=== PATIENT | male | born 1955 | race Caucasian/White ===

== ENCOUNTER 2019-06-05 13:24 | Emergency (ER) | payer OTHER ==
--- NOTE | 2019-06-05 15:16 | RAD REPORT ---
EXAM DESCRIPTION: RAD - Chest Single View - 06/05/2019 2:35 pm CLINICAL HISTORY: CHEST PAIN Chest pain. COMPARISON: CHEST SINGLE VIEW dated 09/19/2009 FINDINGS: Portable technique limits examination quality. Calcified granuloma is present in the right upper lobe. The lungs are otherwise mildly emphysematous but clear. The heart is normal in size. No displaced fractures. IMPRESSION: No acute intrathoracic process suspected.
[2019-06-05 15:20] LABS: Absolute Lymphocytes (CBC) 1.8 K/uL (0.7-4.9); Basophils % 0.6 % (0-1.3); Hematocrit 38.1 % (39.6-49.0); Lymphocytes % 28.9 % (15.3-44.8); MPV 8.5 fL (7.6-11.3); RBC Red Blood Cell Count 4.01 M/uL (4.33-5.43)
[2019-06-05 15:28] LABS: Protime INR 0.96
[2019-06-05 15:33] LABS: Albumin 4.2 g/dL (3.4-5.0); Bilirubin Direct 0.1 mg/dL (0-0.2); Bilirubin Total 0.4 mg/dL (0.2-1.0); Magnesium 2.1 mg/dL (1.8-2.4); Potassium 4.1 mmol/L (3.5-5.1); Protein, Total 7.2 g/dL (6.4-8.2)
--- NOTE | 2019-06-05 16:18 | EDPHYS ---
Physician Documentation [facility] Name: Edis Lopez Age: 64 yrs Sex: Male : 1955 Arrival Date: 06/05/2019 Time: 13:27 Bed 14 Private MD: ED Physician Erick Cervantes HPI: 06/05 15:32 This 64 yrs old Male presents to ER via Wheelchair with complaints of Chest jr8 Pain, Shortness Of Breath. 15:32 The patient or guardian reports chest pain that is located primarily in the substernal jr8 area. Onset: gradually, 1 month(s) ago, and became worse and became persistent. The pain does not radiate. Associated signs and symptoms: Pertinent positives: shortness of breath. The chest pain is described as dull, a pressure. Duration: The patient or guardian reports multiple episodes, that are intermittent, that wax and wane, with no pattern. Modifying factors: The symptoms are alleviated by nothing. the symptoms are aggravated by nothing. Severity of pain: At its worst the pain was moderate in the emergency department the pain is unchanged. The patient has not experienced similar symptoms in the past. The patient has not recently seen a physician. Historical: - Allergies: 13:46 No Known Allergies; iw - PMHx: 13:46 COPD; Emphysema; iw - PSHx: 13:46 None; iw - Immunization history:: Adult Immunizations up to date. - Social history:: Smoking status: Patient/guardian denies using tobacco. - Ebola Screening: : Patient negative for fever greater than or equal to 101.5 degrees Fahrenheit, and additional compatible Ebola Virus Disease symptoms Patient denies exposure to infectious person Patient denies travel to an Ebola-affected area in the 21 days before illness onset No symptoms or risks identified at this time. ROS: 15:32 Eyes: Negative for injury, pain, redness, and discharge, ENT: Negative for injury, jr8 pain, and discharge, Neck: Negative for injury, pain, and swelling, Abdomen/GI: Negative for abdominal pain, nausea, vomiting, diarrhea, and constipation, Back: Negative for injury and pain, MS/Extremity: Negative for injury and deformity, Skin: Negative for injury, rash, and discoloration, Neuro: Negative for headache, weakness, numbness, tingling, and seizure. 15:32 Cardiovascular: Positive for chest pain, Negative for edema, orthopnea, palpitations, paroxysmal nocturnal dyspnea. 15:32 Respiratory: Positive for shortness of breath, Negative for cough, dyspnea on exertion, sputum production, wheezing. Exam: 16:16 Eyes: Pupils equal round and reactive to light, extra-ocular motions intact. Lids and jr8 lashes normal. Conjunctiva and sclera are non-icteric and not injected. Cornea within normal limits. Periorbital areas with no swelling, redness, or edema. ENT: Nares patent. No nasal discharge, no septal abnormalities noted. Tympanic membranes are normal and external auditory canals are clear. Oropharynx with no redness, swelling, or masses, exudates, or evidence of obstruction, uvula midline. Mucous membranes moist. Neck: Trachea midline, no thyromegaly or masses palpated, and no cervical lymphadenopathy. Supple, full range of motion without nuchal rigidity, or vertebral point tenderness. No Meningismus. Cardiovascular: Regular rate and rhythm with a normal S1 and S2. No gallops, murmurs, or rubs. Normal PMI, no JVD. No pulse deficits. Respiratory: Lungs have equal breath sounds bilaterally, clear to auscultation and percussion. No rales, rhonchi or wheezes noted. No increased work of breathing, no retractions or nasal flaring. Abdomen/GI: Soft, non-tender, with normal bowel sounds. No distension or tympany. No guarding or rebound. No evidence of tenderness throughout. Back: No spinal tenderness. No costovertebral tenderness. Full range of motion. Skin: Warm, dry with normal turgor. Normal color with no rashes, no lesions, and no evidence of cellulitis. MS/ Extremity: Pulses equal, no cyanosis. Neurovascular intact. Full, normal range of motion. Neuro: Awake and alert, GCS 15, oriented to person, place, time, and situation. Cranial nerves II-XII grossly intact. Motor strength 5/5 in all extremities. Sensory grossly intact. Cerebellar exam normal. Normal gait. Vital Signs: 13:35 BP 160 / 82; Pulse 67; Resp 18 S; Temp 97.8(TE); Pulse Ox 100% on R/A; Weight 58.97 kg; iw Height 5 ft. 8 in. (172.72 cm); Pain 3/10; 14:30 BP 143 / 86; Pulse 67; Resp 16; Pulse Ox 100% on R/A; Pain 3/10; rb1 15:30 BP 132 / 81; Pulse 67; Resp 15; Pulse Ox 100% ; rb1 16:15 BP 143 / 77; Pulse 61; Resp 18; Pulse Ox 100% on R/A; Pain 2/10; rb1 13:35 Body Mass Index 19.77 (58.97 kg, 172.72 cm) iw MDM: 14:22 Patient medically screened. jr8 16:16 Data reviewed: vital signs, nurses notes, lab test result(s), EKG, radiologic studies, jr8 plain films. Data interpreted: Pulse oximetry: on room air is 100 %. Interpretation: normal. Counseling: I had a detailed discussion with the patient and/or guardian regarding: the historical points, exam findings, and any diagnostic results supporting the discharge/admit diagnosis, lab results, radiology results, the need for outpatient follow up, a family practitioner, to return to the emergency department if symptoms worsen or persist or if there are any questions or concerns that arise at home. 06/05 14:22 Order name: Basic Metabolic Panel; Complete Time: 15:51 06/05 14:22 Order name: CBC with Diff; Complete Time: 15:29 06/05 14:22 Order name: LFT's; Complete Time: 15:06/05 14:22 Order name: Magnesium; Complete Time: 15:51 06/05 14:22 Order name: NT PRO-BNP; Complete Time: 15:51 06/05 14:22 Order name: PT-INR; Complete Time: 15:51 06/05 14:22 Order name: Troponin (emerg Dept Use Only); Complete Time: 15:51 06/05 14:22 Order name: XRAY Chest (1 view); Complete Time: 15:51 06/05 14:22 Order name: EKG; Complete Time: 14:24 06/05 14:22 Order name: Cardiac monitoring; Complete Time: 15:34 06/05 14:22 Order name: EKG - Nurse/Tech; Complete Time: 15:34 06/05 14:22 Order name: IV Saline Lock; Complete Time: 15:34 06/05 14:22 Order name: Labs collected and sent; Complete Time: 15:34 8 06/05 14:22 Order name: O2 Per Protocol; Complete Time: 15:34 8 06/05 14:22 Order name: O2 Sat Monitoring; Complete Time: 15:34 8 Administered Medications: No medications were administered Disposition: 06/05/19 16:17 Discharged to Home. Impression: Chest pain, unspecified. - Condition is Stable. - Discharge Instructions: Nonspecific Chest Pain. - Prescriptions for Hydroxyzine HCl 50 mg Oral Tablet - take 1 tablet by ORAL route every 8 hours As needed; 20 tablet. - Medication Reconciliation Form, Thank You Letter, Antibiotic Education, Prescription Opioid Use form. - Follow up: Private Physician; When: 2 - 3 days; Reason: Recheck today's complaints, Continuance of care, Re-evaluation by your physician. - Problem is new. - Symptoms have improved. Addendum: 06/10/2019 14:39 Co-signature as Attending Physician, Erick Cervantes MD. g s Signatures: Dispatcher [employer] EDMS Amalia Whipple RN RN Jose Beckett PA PA jr8 Erma Aguirre RN RN rb1 Erick Cervantes MD MD Corrections: (The following items were deleted from the chart) 06/05 16:36 16:17 06/05/2019 16:17 Discharged to Home. Impression: Chest pain, unspecified. rb1 Condition is Stable. Forms are Medication Reconciliation Form, Thank You Letter, Antibiotic Education, Prescription Opioid Use. Follow up: Private Physician; When: 2 - 3 days; Reason: Recheck today's complaints, Continuance of care, Re-evaluation by your physician. Problem is new. Symptoms have improved. jr8
--- NOTE | 2019-06-05 16:18 | ER ---
Nurse's Notes [facility] Name: Edis Lopez Age: 64 yrs Sex: Male : 1955 Arrival Date: 06/05/2019 Time: 13:27 Bed 14 Private MD: Diagnosis: Chest pain, unspecified Presentation: 06/05 13:30 Presenting complaint: Patient states: midsternal chest pain and SOB X 1 month, pain iw feels like pressure and sometimes chest wall is tender to palpation, also feels like he can't breath, hx of emphysema and COPd, also has non productive cough. Transition of care: patient was not received from another setting of care. Onset of symptoms was May 04, 2019. Risk Assessment: Do you want to hurt yourself or someone else? Patient reports no desire to harm self or others. Initial Sepsis Screen: Does the patient meet any 2 criteria? No. Patient's initial sepsis screen is negative. Does the patient have a suspected source of infection? No. Patient's initial sepsis screen is negative. Care prior to arrival: None. 13:30 Method Of Arrival: Wheelchair iw 13:30 Acuity: GREGG 3 iw Historical: - Allergies: 13:46 No Known Allergies; iw - PMHx: 13:46 COPD; Emphysema; iw - PSHx: 13:46 None; iw - Immunization history:: Adult Immunizations up to date. - Social history:: Smoking status: Patient/guardian denies using tobacco. - Ebola Screening: : Patient negative for fever greater than or equal to 101.5 degrees Fahrenheit, and additional compatible Ebola Virus Disease symptoms Patient denies exposure to infectious person Patient denies travel to an Ebola-affected area in the 21 days before illness onset No symptoms or risks identified at this time. Screenin:40 Abuse screen: Denies threats or abuse. Nutritional screening: No deficits noted. rb1 Tuberculosis screening: No symptoms or risk factors identified. Fall Risk None identified. Assessment: 13:40 General: Appears in no apparent distress. comfortable, slender, Behavior is calm, rb1 cooperative, Denies fever. Pain: Complains of pain in mid-sternal area Pain radiates to back and the back of neck Pain currently is 4 out of 10 on a pain scale. Pain began x 3 weeks. Neuro: Level of Consciousness is awake, alert, obeys commands, Oriented to person, place, time, situation. Cardiovascular: Capillary refill < 3 seconds is brisk in bilateral fingers. Respiratory: Airway is patent Respiratory effort is even, unlabored, Respiratory pattern is regular, symmetrical. Respiratory: Reports cough that is non-productive. GI: No signs and/or symptoms were reported involving the gastrointestinal system. : No signs and/or symptoms were reported regarding the genitourinary system. Derm: Skin is pink, warm \T\ dry. 14:36 Reassessment: Patient appears in no apparent distress at this time. Patient and/or rb1 family updated on plan of care and expected duration. Pain level reassessed. Patient is alert, oriented x 3, equal unlabored respirations, skin warm/dry/pink. 15:35 Reassessment: Patient appears in no apparent distress at this time. No changes from rb1 previously documented assessment. 16:15 Reassessment: Patient appears in no apparent distress at this time. Patient and/or rb1 family updated on plan of care and expected duration. Pain level reassessed. Patient is alert, oriented x 3, equal unlabored respirations, skin warm/dry/pink. Vital Signs: 13:35 BP 160 / 82; Pulse 67; Resp 18 S; Temp 97.8(TE); Pulse Ox 100% on R/A; Weight 58.97 kg; iw Height 5 ft. 8 in. (172.72 cm); Pain 3/10; 14:30 BP 143 / 86; Pulse 67; Resp 16; Pulse Ox 100% on R/A; Pain 3/10; rb1 15:30 BP 132 / 81; Pulse 67; Resp 15; Pulse Ox 100% ; rb1 16:15 BP 143 / 77; Pulse 61; Resp 18; Pulse Ox 100% on R/A; Pain 2/10; rb1 13:35 Body Mass Index 19.77 (58.97 kg, 172.72 cm) iw ED Course: 13:27 Patient arrived in ED. as 13:40 Jose Beckett PA is PHCP. jr8 13:40 Erick Cervantes MD is Attending Physician. jr8 13:40 Patient has correct armband on for positive identification. Placed in gown. Bed in low rb1 position. Call light in reach. Side rails up X 1. hall monitor on. Pulse ox on. NIBP on. Warm blanket given. 13:46 Triage completed. iw 13:47 Arm band placed on. iw 13:54 Erma Aguirre, RN is Primary Nurse. rb1 14:41 XRAY Chest (1 view) In Process Unspecified. EDMS 15:00 Inserted saline lock: 22 gauge in right antecubital area, using aseptic technique. rb1 Blood collected. Patient maintains SpO2 saturation greater than 95% on room air. 16:35 No provider procedures requiring assistance completed. IV discontinued, intact, rb1 bleeding controlled, No redness/swelling at site. Pressure dressing applied. Administered Medications: No medications were administered Outcome: 16:17 Discharge ordered by . jrRio 16:35 Discharged to home ambulatory, with significant other. rb1 16:35 Condition: stable 16:35 Discharge instructions given to patient, Instructed on discharge instructions, follow up and referral plans. medication usage, Demonstrated understanding of instructions, follow-up care, medications, Prescriptions given X 1. 16:36 Patient left the ED. rb1 Signatures: Dispatcher [employer] EDTN Viviana Ramsey as Amalia Whipple, RN RN Jose Beckett PA PA jr8 Erma Aguirre, RN RN rb1 Corrections: (The following items were deleted from the chart) 13:47 13:30 Presenting complaint: Patient states: midsternal chest pain and SOB X 1 month, iw pain feels like pressure and sometimes chest wall is tender to palpation, also feels like he can't breath, hx of emphysema and COPd iw
[2019-06-05 16:55] VITALS: TEMP 97.8; O2SAT 100
[2019-06-05 16:59] VITALS: BP 143/77
--- NOTE | 2019-06-06 08:39 | EKG ---
Test Date: 2019-06-05 Test Time: 13:35:10 Public Policy Mediator: ENIDT MEASUREMENT RESULTS: Intervals: Rate: 57 CA: 138 QRSD: 78 QT: 410 QTc: 399 [place]: P: 69 CA: 138 QRS: 51 T: 64 INTERPRETIVE STATEMENTS: Sinus bradycardia Otherwise normal ECG Compared to ECG 09/19/2009 20:51:23 No significant changes Electronically Signed On 06-06-19 08:39:01 CDT by Jozef Black
== END 2019-06-05 16:36 | disposition home or self-care (01) ==
LOC: ER 13:24
DX: R07.9 Chest pain, unspecified (principal)
CPT/HCPCS: 36415; 71045; 80048; 80076; 83735; 83880; 84484; 85025; 85610; 93005; 99285

== ENCOUNTER 2024-06-12 10:05 | Emergency (ER) | payer MEDICARE ==
[2024-06-12] MEDS ORDERED: TDAP (DIPHTH,PERTUSS(ACELL),TET VAC) 0.5 ML VIAL IMVAC ONE (11:00)
--- NOTE | 2024-06-12 11:55 | RAD REPORT ---
Exam:Hand Left 3 View CLINICAL HISTORY: Left hand pain FINDINGS: No fracture or dislocation seen
[2024-06-12] MEDS ORDERED: LIDOCAINE 2% W/EPI 1:200,000 MPF 20 ML VIAL IM ONE (12:15)
--- NOTE | 2024-06-12 13:02 | EDPHYS ---
Physician Documentation [facility] Name: Edis Lopez Age: 69 yrs Sex: Male : 1955 Arrival Date: 06/12/2024 Time: 10:05 Bed 11 Private MD: ED Physician Jacky Simmons HPI: 06/12 11:02 This 69 yrs old Male presents to ER via Ambulatory with complaints of Laceration - ms3 Finger. 11:02 69-year-old male with past medical history of COPD, emphysema, hypertension [place] [facility] [place] department for laceration of proximal left second digit. Patient states his discomfort is mild. He denies any alleviating or inciting factors. Patient denies numbness of the digit.. Historical: - Allergies: 10:24 No Known Allergies; ss - PMHx: 10:24 COPD; Emphysema; hypertension (Emphysema); ss - Immunization history:: Last tetanus immunization: unknown. - Infectious Disease History:: Denies. - Social history:: Smoking status: Patient denies any tobacco usage or history of. ROS: 11:02 Constitutional: Negative for fever, and chills. Neck: Negative for injury, pain, and ms3 swelling, Cardiovascular: Negative for chest pain, and palpitations. Respiratory: Negative for shortness of breath, cough, wheezing, and pleuritic chest pain, Abdomen/GI: Negative for abdominal pain, nausea, vomiting, diarrhea, and constipation, 11:02 Skin: Positive for laceration(s), Exam: 11:02 Constitutional: This is a well developed, well nourished patient who is awake, alert, ms3 and in no acute distress. Head/Face: Normocephalic, atraumatic. Cardiovascular: Regular rate and rhythm with a normal S1 and S2. No gallops, murmurs, or rubs. Normal PMI, no JVD. No pulse deficits. Respiratory: Lungs have equal breath sounds bilaterally, clear to auscultation and percussion. No rales, rhonchi or wheezes noted. No increased work of breathing, no retractions or nasal flaring. Abdomen/GI: Soft, non-tender, with normal bowel sounds. No distension or tympany. No guarding or rebound. No evidence of tenderness throughout. MS/ Extremity: Pulses equal, no cyanosis. Neurovascular intact. Full, normal range of motion. 11:02 Skin: injury, laceration(s), the wound is approximately 3 cm(s), Vital Signs: 10:24 Pulse 103; Resp 17; Temp 98.6(O); Pulse Ox 99% ; Weight 68.04 kg; Height 5 ft. 8 in. ; ss Pain 2/10; 10:28 BP 118 / 86; ss 13:07 BP 133 / 96; Pulse 87; Resp 18; Temp 98.6; Pulse Ox 98% on R/A; MAP 109 mmHg; Pain 2/10;tm6 10:24 Body Mass Index 22.81 (68.04 kg, 172.72 cm) ss 10:24 Pain Scale: Adult ss 13:07 Pain Scale: Adult tm6 Laceration: 13:02 Wound Repair of 2.5cm ( 1.0in ) subcutaneous laceration to left hand. Distal ms3 neuro/vascular/tendon intact. Anesthesia: Local anesthetic administered with 3 mls of 2% Lidocaine with epi. Wound prep: Simple cleansing by me. Skin closed with 3 5-0 Prolene using simple sutures and sterile technique. Dressed with Bacitracin, non-adherent dressing. Patient tolerated well. MDM: 10:28 Patient medically screened. ms3 11:06 Differential diagnosis: open fracture, Tendon laceration vs laceration. ms3 13:42 Data reviewed: vital signs, nurses notes, radiologic studies, and as a result, I will ms3 discharge patient. Consideration of Admission/Observation Discussed transfer to hand surgery as patient with weak extension of finger. Patient declines. Patient states he would like laceration sutured. Discussed with patient he may have loss of function of second digit due to extensor tendon laceration. Patient understands and accepts risks.. I considered the following discharge prescriptions or medication management in the emergency department Medications were administered in the Emergency Department. See MAR. Independent interpretation of the following test(s) in the Emergency Department X-Ray: My interpretation is Left hand x-ray images reviewed by me do not reveal radiopaque foreign body. Care significantly affected by the following chronic conditions: Hypertension, Chronic Obstructive Pulmonary Disease. Counseling: I had a detailed discussion with the patient and/or guardian regarding the historical points, exam findings, and any diagnostic results supporting the discharge/admit diagnosis, the need for outpatient follow up, to return to the emergency department if symptoms worsen or persist or if there are any questions or concerns that arise at home. Refusal of service: The patient/guardian displays adequate decision making capability and despite a detailed discussion of alternatives, benefits, risks, and consequences refuses: Transfer to hand surgery. ED course: Patient's laceration sutured without complications. Patient to follow-up with Dr. Gerard Hooper in 2 to 3 days. Patient understands and agrees with plan. All questions were answered. Return precautions discussed include worsening symptoms, or any other concerns.. 06/12 10:45 Order name: Hand Left 3 View XRAY; Complete Time: 12:04 ms3 Administered Medications: 11:05 Drug: Boostrix Tdap IM 0.5 ml IM once; as a single dose Route: IM; Site: right deltoid; ss 11:06 Follow up: 06/18/26 [id number] 13:34 Drug: Bacitracin Topical Ointment (500 unit/g) 1 application Topical once Route: tm6 Topical; Site: affected area; 13:35 Follow up: Response: Medication administered at discharge. tm6 Disposition Summary: 06/12/24 13:01 Discharge Ordered Notes: Location: Home ms3 Condition: Stable ms3 Diagnosis - Laceration without foreign body of left index finger without damage to nail ms3 Followup: ms3 - With: Chip Chen DO - When: 2 - 3 days - Reason: Recheck today's complaints Discharge Instructions: - Discharge Summary Sheet ms3 - Laceration Care, Adult, [id number] ms3 Forms: - Medication Reconciliation Form ms3 - Antibiotic Education ms3 - Prescription Opioid Use ms3 - Patient Portal Instructions ms3 - Leadership Thank You Letter ms3 Prescriptions: - Cephalexin 250 mg Oral capsule - take 1 capsule ORAL route every 6 hours for 5 days; 20 capsule; Refills: 0, ms3 Product Selection Permitted Signatures: Dispatcher [employer] Elisa Mcgill RN RN ss Jacky Simmons DO DO ms3 Chon Hadley RN RN tm6
--- NOTE | 2024-06-12 13:02 | ER ---
Nurse's Notes [facility] Name: Edis Lopez Age: 69 yrs Sex: Male : 1955 Arrival Date: 06/12/2024 Time: 10:05 Bed 11 Private MD: Diagnosis: Laceration without foreign body of left index finger without damage to nail Presentation: 06/12 10:23 Chief complaint: Patient states: Laceration noted to L fourth knuckle that occurred 1 ss hour ago after a disc on a thread grinder, "blew up.". Coronavirus screen: Client denies travel out of the [place] in the last 14 days. Ebola Screen: Patient denies exposure to infectious person. Patient denies travel to an Ebola-affected area in the 21 days before illness onset. Complicating Factors: There are no complicating factors for this patient. Initial Sepsis Screen: Does the patient meet any 2 criteria? No. Patient's initial sepsis screen is negative. Does the patient have a suspected source of infection? No. Patient's initial sepsis screen is negative. Risk Assessment: Do you want to hurt yourself or someone else? Patient reports no desire to harm self or others. Onset of symptoms was June 12, 2024. 10:23 Method Of Arrival: Ambulatory ss 10:23 Acuity: GREGG 4 ss Historical: - Allergies: 10:24 No Known Allergies; ss - PMHx: 10:24 COPD; Emphysema; hypertension (Emphysema); ss - Immunization history:: Last tetanus immunization: unknown. - Infectious Disease History:: Denies. - Social history:: Smoking status: Patient denies any tobacco usage or history of. Screenin:49 [facility] ED Fall Risk Assessment (Adult) History of falling in the last 3 months, tm6 including since admission No falls in past 3 months (0 pts) Confusion or Disorientation No (0 pts) Intoxicated or Sedated No (0 pts) Impaired Gait No (0 pts) Mobility Assist Device Used No (0 pt) Altered Elimination No (0 pt) Score/Fall Risk Level 0 - 2 = Low Risk Oriented to surroundings, Maintained a safe environment, Educated pt \\T\\ family on fall prevention, incl call for assistance when getting out of bed. Abuse screen: Denies threats or abuse. Denies injuries from another. Nutritional screening: No deficits noted. Tuberculosis screening: No symptoms or risk factors identified. Assessment: 12:00 General: Appears in no apparent distress. Behavior is calm, cooperative. tm6 12:48 Pain: Complains of pain in left hand Pain currently is 2 out of 10 on a pain scale. tm6 Neuro: Level of Consciousness is awake, alert, obeys commands, Oriented to person, place, time, situation. Cardiovascular: Patient's skin is warm and dry. Respiratory: Airway is patent Respiratory effort is even, unlabored, Respiratory pattern is regular, symmetrical. GI: No signs and/or symptoms were reported involving the gastrointestinal system. Abdomen is flat, non-distended. : No signs and/or symptoms were reported regarding the genitourinary system. EENT: No signs and/or symptoms were reported regarding the EENT system. Derm: laceration to left hand. Musculoskeletal: laceration to left hand. Injury Description: Laceration sustained to left hand is 0.5 to 2.5 cm long, not bleeding. Vital Signs: 10:24 Pulse 103; Resp 17; Temp 98.6(O); Pulse Ox 99% ; Weight 68.04 kg; Height 5 ft. 8 in. ; ss Pain 2/10; 10:28 BP 118 / 86; ss 13:07 BP 133 / 96; Pulse 87; Resp 18; Temp 98.6; Pulse Ox 98% on R/A; MAP 109 mmHg; Pain 2/10;tm6 10:24 Body Mass Index 22.81 (68.04 kg, 172.72 cm) ss 10:24 Pain Scale: Adult ss 13:07 Pain Scale: Adult tm6 ED Course: 10:10 Patient arrived in ED. mg5 10:13 Jacky Simmons DO is Attending Physician. ms3 10:24 Triage completed. ss 10:24 Arm band placed on right wrist. ss 10:47 Elisa Martinez, RN is Primary Nurse. ss 10:57 Hand Left 3 View XRAY In Process Unspecified. EDMS 12:49 Patient has correct armband on for positive identification. Bed in low position. Call tm6 light in reach. Side rails up X 1. Provided Education on: use of call davis. 13:01 Chip Chen DO is Referral Physician. ms3 13:01 Assist provider with laceration repair on left hand using sutures. Set up tray. tm6 Performed by Jacky Simmons DO Patient tolerated well. 13:07 Patient did not have IV access during this emergency room visit. tm6 13:35 Dressings: non-adherent dressing x 1 left hand. tm6 Administered Medications: 11:05 Drug: Boostrix Tdap IM 0.5 ml IM once; as a single dose Route: IM; Site: right deltoid; ss 11:06 Follow up: 06/18/26 [id number] 13:34 Drug: Bacitracin Topical Ointment (500 unit/g) 1 application Topical once Route: tm6 Topical; Site: affected area; 13:35 Follow up: Response: Medication administered at discharge. tm6 Medication: 11:06 Vaccine Information Statement (VIS) provided today. Questions and/or concerns ss addressed. VIS edition date: April 2021. Intake: Outcome: 13:01 Discharge ordered by . ms3 13:07 Condition: stable tm6 13:35 Discharged to home ambulatory, with family, tm6 13:35 Discharge instructions given to patient, family, Instructed on discharge instructions, follow up and referral plans. medication usage, Demonstrated understanding of instructions, follow-up care, medications, Prescriptions given X 1, 13:35 Patient left the ED. tm6 Signatures: Dispatcher [employer] EDMS Elisa Martinez, RN RN Jacky Brunson DO DO ms3 Dolores Sotelo mg5 Chon Hadley RN RN tm6
[2024-06-13 01:48] VITALS: TEMP 98.6
[2024-06-13 01:51] VITALS: BP 133/96; O2SAT 98
== END 2024-06-12 13:35 | disposition home or self-care (01) ==
LOC: ER 10:05
DX: S61.211A Laceration without foreign body of left index finger without damage to nail, initial encounter (principal)
CPT/HCPCS: 12001; 96372; 99284

== ENCOUNTER 2024-07-02 13:22 | Emergency (ER) | payer MEDICARE ==
--- NOTE | 2024-07-02 14:31 | RAD REPORT ---
Procedure: Chest Single View HISTORY: Shortness of breath COMPARISON: April 2024 FINDINGS: The lungs appear clear of acute infiltrate. No significant pleural effusion noted. The heart is normal size. IMPRESSION: No acute abnormality is displayed.
--- NOTE | 2024-07-02 14:34 | RAD REPORT ---
EXAM: CT brain without contrast HISTORY: Dizziness. Change in taste and smell COMPARISON: None TECHNIQUE: Multiple contiguous axial images were obtained and a CT of the brain without contrast.. Sagittal and coronal reconstruction performed. Automated exposure control, adjustment of the mA and/or kV according to patient size, and/or iterative reconstruction. Unless otherwise specified, incidental f indings do not require dedicated imaging follow-u FINDINGS: An intracranial bleed is not seen Ventricles are normal caliber No extra-axial fluid collection noted No significant hypodensity within the brain No fluid within the visualized sinuses or mastoids noted. IMPRESSION: No acute intracranial abnormality noted. If the patient's symptoms persist MRI of the brain would be recommended.
[2024-07-02 15:35] LABS: SARS-CoV-2 Antigen CONTROL BLUE LINE VIS/BG OK; SARS-CoV-2 Antigen Rapid Res Negative (Negative)
--- NOTE | 2024-07-02 15:55 | ER ---
Nurse's Notes [facility] Name: Edis Lopez Age: 69 yrs Sex: Male : 1955 Arrival Date: 07/02/2024 Time: 13:22 Bed 8 Private MD: Diagnosis: Anosmia;Ageusia Presentation: 07/02 13:41 Chief complaint: Patient states: Since Sunday pt has been able to sleep and his taste cm10 and smell have been off. Pt states that everything tastes and smells like chemicals. Coronavirus screen: Client denies travel out of the [place] in the last 14 days. Ebola Screen: Patient denies travel to an Ebola-affected area in the 21 days before illness onset. No symptoms or risks identified at this time. Initial Sepsis Screen: Does the patient meet any 2 criteria? HR > 90 bpm. Does the patient have a suspected source of infection? No. Patient's initial sepsis screen is negative. Risk Assessment: Do you want to hurt yourself or someone else? Patient reports no desire to harm self or others. Onset of symptoms was June 30, 2024. 13:41 Method Of Arrival: Ambulatory cm10 13:41 Acuity: GREGG 3 cm10 Triage Assessment: 13:44 General: Appears in no apparent distress. comfortable, Behavior is calm, cooperative. cm10 EENT: Reports Everything smells and tastes like chemicals.. Neuro: No deficits noted. Level of Consciousness is awake, alert, obeys commands, Oriented to person, place, time, situation, Appropriate for age. Respiratory: No deficits noted. Airway is patent Respiratory effort is even, unlabored, Respiratory pattern is regular, symmetrical. Historical: - Allergies: 13:41 No Known Allergies; cm10 - PMHx: 13:41 COPD; Emphysema; Hypertension (Emphysema); cm10 - Immunization history:: Adult Immunizations up to date. - Infectious Disease History:: Denies. - Social history:: Smoking status: unknown. - Family history:: not pertinent. - Hospitalizations: : No recent hospitalization is reported. Screenin:19 [facility] ED Fall Risk Assessment (Adult) History of falling in the last 3 months, hb including since admission No falls in past 3 months (0 pts) Confusion or Disorientation No (0 pts) Intoxicated or Sedated No (0 pts) Impaired Gait No (0 pts) Mobility Assist Device Used No (0 pt) Altered Elimination No (0 pt) Score/Fall Risk Level 0 - 2 = Low Risk Oriented to surroundings, Maintained a safe environment, Educated pt \T\ family on fall prevention, incl call for assistance when getting out of bed. Abuse screen: Denies threats or abuse. Denies injuries from another. Nutritional screening: No deficits noted. Tuberculosis screening: No symptoms or risk factors identified. Assessment: 15:19 General: Appears in no apparent distress. Behavior is calm, cooperative. Pain: Denies hb pain. Neuro: Level of Consciousness is awake, alert, obeys commands, Oriented to person, place, time, situation. Cardiovascular: Patient's skin is warm and dry. Respiratory: Respiratory effort is even, unlabored, Respiratory pattern is regular, symmetrical. GI: No signs and/or symptoms were reported involving the gastrointestinal system. : No signs and/or symptoms were reported regarding the genitourinary system. EENT: No signs and/or symptoms were reported regarding the EENT system. Derm: Skin is pink, warm \T\ dry. Musculoskeletal: No signs and/or symptoms reported regarding the musculoskeletal system. Vital Signs: 13:41 BP 131 / 105; Pulse 116; Resp 18; Temp 96.7(IR); Pulse Ox 100% on R/A; Weight 68.04 kg; cm10 Height 5 ft. 8 in. ; Pain 0/10; 13:41 Body Mass Index 22.81 (68.04 kg, 172.72 cm) cm10 13:41 Pain Scale: Adult cm10 ED Course: 13:24 Patient arrived in ED. mr 13:36 Siddharth Mcgowan MD is Attending Physician. rn 13:44 Triage completed. cm10 13:45 Arm band placed on left wrist. Patient placed in waiting room. cm10 14:13 CT Head Brain wo Cont In Process Unspecified. EDMS 14:18 XRAY Chest (1 view) In Process Unspecified. EDMS 15:13 Genaro Finley, RN is Primary Nurse. bp 15:19 Patient has correct armband on for positive identification. Provided Education on: use hb of call light . 15:19 No provider procedures requiring assistance completed. Patient did not have IV access hb during this emergency room visit. Administered Medications: No medications were administered Medication: 15:19 VIS not applicable for this client. hb Outcome: 15:54 Discharge ordered by . rn 16:01 Discharged to home ambulatory, bp 16:01 Condition: stable 16:01 Discharge instructions given to patient, Instructed on discharge instructions, follow up and referral plans. Demonstrated understanding of instructions, follow-up care, 16:01 Patient left the ED. bp Signatures: Dispatcher [employer] EDMS Patti Benito, Reg Reg mr Siddharth Mcgowan MD MD rn Baxter, Heather RN RN Genaro Tellez RN RN Anny Knapp RN RN cm10
--- NOTE | 2024-07-02 15:55 | EDPHYS ---
Physician Documentation [facility] Name: Edis Lopez Age: 69 yrs Sex: Male : 1955 Arrival Date: 07/02/2024 Time: 13:22 Bed 8 Private MD: ED Physician Siddharth Mcgowan HPI: 07/02 15:49 This 69 yrs old Male presents to ER via Ambulatory with complaints of Doesn't Feel rn Right. 15:49 Patient reports 3 days of not being able to taste or smell anything. Denies fever planning director signs of infection. No head injury. No headache. No focal neurological deficit. No vision changes. Did stop all of his medication 3 days ago around the time this started for unclear reason. Patient states took home COVID test today that was negative. This is never happened to him before. States hunger is there just does not like the taste of food at this time.. Onset: The symptoms/episode began/occurred 3 day(s) ago. Severity of symptoms: At their worst the symptoms were mild in the emergency department the symptoms are unchanged. The patient has not experienced similar symptoms in the past. The patient has not recently seen a physician. Historical: - Allergies: 13:41 No Known Allergies; cm10 - PMHx: 13:41 COPD; Emphysema; Hypertension (Emphysema); cm10 - Immunization history:: Adult Immunizations up to date. - Infectious Disease History:: Denies. - Social history:: Smoking status: unknown. - Family history:: not pertinent. - Hospitalizations: : No recent hospitalization is reported. ROS: 15:49 Constitutional: Negative for fever, chills, and weight loss, ENT: Negative for injury, rn pain, and discharge, Neck: Negative for injury, pain, and swelling, Cardiovascular: Negative for chest pain, palpitations, and edema, Respiratory: Negative for shortness of breath, cough, wheezing, and pleuritic chest pain, Abdomen/GI: Negative for abdominal pain, nausea, vomiting, diarrhea, and constipation, MS/Extremity: Negative for injury and deformity, Skin: Negative for injury, rash, and discoloration, Neuro: Negative for headache, weakness, numbness, tingling, and seizure, Exam: 15:49 Constitutional: This is a well developed, well nourished patient who is awake, alert, rn and in no acute distress. Head/Face: Normocephalic, atraumatic. ENT: No stridor, no pharyngeal abnormalities. No abnormalities of nose or nares Cardiovascular: Tachycardic, regular. No pulse deficits. Respiratory: No increased work of breathing, no retractions or nasal flaring. Neuro: Awake and alert, GCS 15, oriented to person, place, time, and situation. Cranial nerves II-XII grossly intact. Motor strength 5/5 in all extremities. Sensory grossly intact. Cerebellar exam normal. Normal gait. Vital Signs: 13:41 BP 131 / 105; Pulse 116; Resp 18; Temp 96.7(IR); Pulse Ox 100% on R/A; Weight 68.04 kg; cm10 Height 5 ft. 8 in. ; Pain 0/10; 13:41 Body Mass Index 22.81 (68.04 kg, 172.72 cm) cm10 13:41 Pain Scale: Adult cm10 MDM: 13:37 Medical Screening Exam initiated rn 15:49 Differential Diagnosis Brain tumor mass, sinusitis, COVID, other viral infection. Data rn reviewed: vital signs, nurses notes, lab test result(s), radiologic studies, CT scan, plain films, and as a result, I will discharge patient. Counseling: I had a detailed discussion with the patient and/or guardian regarding the historical points, exam findings, and any diagnostic results supporting the discharge/admit diagnosis, lab results, radiology results, the need for outpatient follow up, to return to the emergency department if symptoms worsen or persist or if there are any questions or concerns that arise at home. Special discussion: I discussed with the patient/guardian in detail that at this point there is no indication for admission to the hospital. It is understood, however, that if the symptoms persist or worsen the patient needs to return immediately for re-evaluation. 07/02 14:01 Order name: SARS RAPID; Complete Time: 15:44 rn 07/02 14:01 Order name: CT Head Brain wo Cont; Complete Time: 14:35 rn 07/02 14:11 Order name: XRAY Chest (1 view); Complete Time: 14:35 rn Administered Medications: No medications were administered Disposition Summary: 07/02/24 15:54 Discharge Ordered Notes: Location: Home rn Problem: new rn Symptoms: are unchanged rn Condition: Stable rn Diagnosis - Anosmia rn - Aguesia rn - Ageusia rn Followup: rn - With: Private Physician - When: As needed - Reason: Recheck today's complaints, Re-evaluation by your physician Forms: - Medication Reconciliation Form rn - Antibiotic or rn - Prescription Opioid Use rn - Patient Portal Instructions rn - Leadership Thank You Letter rn Signatures: Dispatcher [employer] Siddharth Cleveland MD MD rn BraulioAnny RN RN [facility]
[2024-07-02 21:56] VITALS: BP 131/105; TEMP 96.7; O2SAT 100
== END 2024-07-02 16:01 | disposition home or self-care (01) ==
LOC: ER 13:22
DX: R43.0 Anosmia (principal); R48.1 Agnosia; I10 Essential (primary) hypertension; J44.9 Chronic obstructive pulmonary disease, unspecified; Z11.52 Encounter for screening for COVID-19
CPT/HCPCS: 36415; 70450; 71045; 87811; 99282